=== PATIENT | male | born 1980 | race Caucasian/White ===

== ENCOUNTER 2017-01-11 09:40 | Emergency (ER) | payer MEDICARE, OTHER ==
--- NOTE | 2017-01-11 09:59 | ER Document Report ---
ED Medical Screen (RME) - General Chief Complaint: Palpitations Stated Complaint: POSSIBLE HEART PALPITATIONS Time Seen by Provider: 01/11/17 09:53 Mode of Arrival: Ambulatory Information source: Patient Notes: 36 yr old male who ran out of his home meds presents whit complaints of cramping chest pain , stress and stuttering episodes. pt denies any fevers or chills, notes palpitations I have greeted and performed a rapid initial assessment of this patient. A comprehensive ED assessment and evaluation of the patient, analysis of test results and completion of the medical decision making process will be conducted by additional ED providers. PHYSICAL EXAMINATION: GENERAL: Well-appearing, well-nourished and in no acute distress. HEAD: Atraumatic, normocephalic. EYES: Pupils equal round extraocular movements intact, conjunctiva are normal. ENT: Nares patent NECK: Normal range of motion LUNGS: No respiratory distress Musculoskeletal: Normal range of motion NEUROLOGICAL: Normal speech, normal gait. PSYCH: Normal mood, normal affect. SKIN: Warm, Dry, normal turgor, no rashes or lesions noted. TRAVEL OUTSIDE OF THE [place] IN LAST 30 DAYS: No - Related Data Allergies/Adverse Reactions: No Known Allergies Allergy (Verified 01/11/17 09:45) Past Medical History Renal/ Medical History: Denies: Hx Peritoneal Dialysis Psychiatric Medical History: Reports: Hx Depression, Hx Post Traumatic Stress Disorder Traumatic Medical History: Reports: Hx Traumatic Brain Injury Past Surgical History: Reports: Hx Orthopedic Surgery - bilat shoulders; bilat knees; L3-S1 fusion 2007 - Immunizations Hx Diphtheria, Pertussis, Tetanus Vaccination: Yes Physical Exam - Vital signs Vitals: Temp Pulse Resp BP Pulse Ox 98.2 F 72 20 126/83 H 99 01/11/17 09:47 01/11/17 09:47 01/11/17 09:47 01/11/17 09:47 01/11/17 09:47 Course - Vital Signs Vital signs: Temp Pulse Resp BP Pulse Ox 98.2 F 72 20 126/83 H 99 01/11/17 09:47 01/11/17 09:47 01/11/17 09:47 01/11/17 09:47 01/11/17 09:47
[2017-01-11] MEDS ORDERED: ASPIRIN 81 MG TABLET, CHEWABLE PO ONE (11:32)
--- NOTE | 2017-01-11 11:34 | ER Document Report ---
ED General - General Chief Complaint: Palpitations Stated Complaint: POSSIBLE HEART PALPITATIONS Time Seen by Provider: 01/11/17 09:53 Mode of Arrival: Ambulatory Information source: Patient Notes: Patient presents to the ED with c/o chest cramping that comes and goes for the past two weeks. He reports he has a history of anxiety, panic attacks, TBI, PTSD and is almost out of his Prozac and klonipin. Reports he has been spreading them out, not taking as prescribed. Patient reports he has been under stressful situation in [place] for the past 2 weeks. He just drove back from [place]. Denies SOB. He reports he has had a left-sided cramping chest pain that comes and goes. Reports that the cramp can last for seconds to hours. He reports after the episode he feels exhausted. He denies other symptoms such as fever vomiting diarrhea. Reports mother had a heart attack when she was 20 years old. He denies cardiac disease. Denies high blood pressure. TRAVEL OUTSIDE OF THE [place] IN LAST 30 DAYS: No - HPI Onset: Other - 2 weeks Onset/Duration: Waxing and waning Quality of pain: Cramping Severity: Mild Pain Level: 2 Associated symptoms: None Exacerbated by: Denies Relieved by: Denies Similar symptoms previously: Yes Recently seen / treated by doctor: No - Related Data Allergies/Adverse Reactions: No Known Allergies Allergy (Verified 01/11/17 09:45) Past Medical History - General Information source: Patient - Social History Smoking Status: Current Every Day Smoker Cigarette use (# per day): Yes Chew tobacco use (# tins/day): No Frequency of alcohol use: None Drug Abuse: Marijuana Lives with: Family Family History: Reviewed & Not Pertinent Patient has suicidal ideation: No Patient has homicidal ideation: No Renal/ Medical History: Denies: Hx Peritoneal Dialysis Psychiatric Medical History: Reports: Hx Anxiety - PANIC ATTACKS., Hx Depression , Hx Post Traumatic Stress Disorder, Other - TBI Traumatic Medical History: Reports: Hx Traumatic Brain Injury Past Surgical History: Reports: Hx Orthopedic Surgery - bilat shoulders; bilat knees; L3-S1 fusion 2007 - Immunizations Hx Diphtheria, Pertussis, Tetanus Vaccination: Yes Physical Exam - Vital signs Vitals: Temp Pulse Resp BP Pulse Ox 98.2 F 72 20 126/83 H 99 01/11/17 09:47 01/11/17 09:47 01/11/17 09:47 01/11/17 09:47 01/11/17 09:47 - Notes Notes: PHYSICAL EXAMINATION: GENERAL: Well-appearing and in no acute distress HEAD: Atraumatic, normocephalic. EYES: Pupils equal round extraocular movements intact, sclera anicteric, conjunctiva are normal. ENT: nares patent, Moist mucous membranes. NECK: Normal range of motion, supple without lymphadenopathy LUNGS: CTAB and equal. No wheezes rales or rhonchi. nontender to touch HEART: Regular rate and rhythm without murmurs ABDOMEN: Soft, no tenderness. No guarding, no rebound BACK: Denies pain EXTREMITIES: Normal range of motion, no pitting edema. No cyanosis. NEUROLOGICAL: Cranial nerves grossly intact. Normal sensory/motor exams. PSYCH: Normal mood, normal affect. SKIN: Warm, Dry, normal turgor, no rashes or lesions noted Course - Re-evaluation Re-evalutation: 01/11/17 12:30 Presentation of left side chest pain in an otherwise well-appearing patient. Low clinical suspicion for ACS given the clinical history, exam, EKG without ST elevation or depressions, and negative initial troponin. Heart score less than or equal to 3. PE also seems unlikely given the clinical history, absence of tachycardia or dyspnea. Patient's PERC criteria is negative. Chest x-ray without evidence of pneumothorax or pneumonia. No widened mediastinum. Inferior dissection also seems unlikely given history, symmetric pulses, chest x -ray and vitals. Given the reassuring evaluation, will plan for discharge home at this time with return precautions and follow-up recommendations. Patient has been instructed to return if symptoms worsen or change in any way. HEART score-1 History ECG- SR Age= 36= 0 Risk Factors= smokes, mother family hx CAD= 1 Troponin=0 Total Chest pain in a patient without evidence of cardiac or other serious etiology during the workup today. I discussed with patient that based on age, risk factors and emergency department testing, the likelihood that her symptoms are related to her heart is very low (estimated risk of heart attack or over the next 30 days of less than 1% ). The patient demonstrates decision-making capacity and has verbalized an understanding of these risks to me. Based on this, the patient was instructed to follow-up up as an outpatient. Usual chest pain return precautions reviewed. Patient verbalized understanding. After discussion with patient and his left-sided chest pain is probably due to his lack of anxiety medications. We will discharge him with a prescription for Prozac and Klonopin until [facility]. Patient is calm resting quietly no distress. - Vital Signs Vital signs: Temp Pulse Resp BP Pulse Ox 98.2 F 72 12 115/82 95 01/11/17 09:47 01/11/17 09:47 01/11/17 13:22 01/11/17 11:36 01/11/17 13:22 - Laboratory Result Diagrams: 01/11/17 11:25 01/11/17 11:25 Laboratory results interpreted by me: 01/11/17 01/11/17 01/11/17 11:25 11:25 11:25 BUN 21 H Creatine Kinase 47 L TSH 0.33 L - Diagnostic Test Radiology reviewed: Image reviewed, Reports reviewed - negative - EKG Interpretation by Me EKG shows normal: Sinus rhythm Discharge - Discharge Clinical Impression: Chest pain, Elevated blood pressure reading Condition: Stable Disposition: HOME, SELF-CARE Instructions: Prozac (OM), Anxiety (OM), Benzodiazepines (OM), Chest Pain of Unclear Cause (OM) Additional Instructions: *You have been evaluated for chest pain, history of anxiety *Take medication as prescribed *[facility] *Return to ED for worsening condition, changes, needs *Return to ED if not better in 24 hours Prescriptions: Clonazepam [Klonopin 1 mg Tablet] 1 mg PO BID #20 tablet Fluoxetine HCl [Prozac 20 mg Capsule] 20 mg PO DAILY #30 capsule Forms: Smoking Cessation Education, Elevated Blood Pressure
[2017-01-11 11:52] LABS: ABSOLUTE BASOPHILS # (AUTO) 0.1 10^3/uL (0.0-0.2); ABSOLUTE EOSINOPHILS # (AUTO) 0.4 10^3/uL (0.0-0.6); ABSOLUTE LYMPHOCYTES (AUTO) 2.9 10^3/uL (0.5-4.7); ABSOLUTE MONOCYTES (AUTO) 0.5 10^3/uL (0.1-1.4); ABSOLUTE NEUT (AUTO) 3.3 10^3/uL (1.7-8.2); BASOPHILS % (AUTO) 0.8 % (0-2); EOSINOPHILS % (AUTO) 5.4 % (0-6); HEMATOCRIT 42.2 % (37.9-51.0); HEMOGLOBIN 14.7 g/dL (13.5-17.0); HGB HCT DIFFERENCE 1.9; LYMPHOCYTES % (AUTO) 40.6 % (13-45); MEAN CORPUSCULAR HEMOGLOBIN 32.8 pg (27.0-33.4); MEAN CORPUSCULAR HGB CONC 34.9 g/dL (32.0-36.0); MEAN CORPUSCULAR VOLUME 94 fl (80-97); MONOCYTES % (AUTO) 6.6 % (3-13); RED BLOOD COUNT 4.49 10^6/uL (4.35-5.55); RED CELL DISTRIBUTION WIDTH 12.5 % (11.5-14.0); SEGMENTED NEUTROPHILS % (AUTO) 46.6 % (42-78); WHITE BLOOD COUNT 7.1 10^3/uL (4.0-10.5)
--- NOTE | 2017-01-11 12:09 | RADIOLOGY REPORT (SQ) ---
EXAM DESCRIPTION: CHEST PA/LAT COMPLETED DATE/TIME: 01/11/2017 11:45 am REASON FOR STUDY: chest pain COMPARISON: 06/06/2016 EXAM PARAMETERS: NUMBER OF VIEWS: two views TECHNIQUE: Digital Frontal and Lateral radiographic views of the chest acquired. RADIATION DOSE: NA LIMITATIONS: none FINDINGS: LUNGS AND PLEURA: No opacities, masses or pneumothorax. No pleural effusion. MEDIASTINUM AND HILAR STRUCTURES: No masses or contour abnormalities. HEART AND VASCULAR STRUCTURES: Heart normal size. No evidence for failure. BONES: No acute findings. HARDWARE: None in the chest. OTHER: No other significant finding. IMPRESSION: NO SIGNIFICANT RADIOGRAPHIC FINDING IN THE CHEST. TECHNICAL DOCUMENTATION: JOB ID: [id number] [employer]- All Rights Reserved
[2017-01-11 12:17] LABS: ALANINE AMINOTRANSFERASE 42 U/L (21-72); ALBUMIN 4.3 g/dL (3.5-5.0); ALKALINE PHOSPHATASE 79 U/L (38-126); ANION GAP 11 (5-19); ASPARTATE AMINO TRANSFERASE 23 U/L (17-59); BILIRUBIN,DIRECT 0.3 mg/dL (0.0-0.4); BILIRUBIN,TOTAL 0.5 mg/dL (0.2-1.3); BLOOD UREA NITROGEN 21 mg/dL (7-20); CALCIUM 9.6 mg/dL (8.4-10.2); CARBON DIOXIDE 26 mmol/L (22-30); CHLORIDE 106 mmol/L (98-107); CREATININE RESULT 0.86 mg/dL (0.52-1.25); GLUCOSE 87 mg/dL (75-110); SODIUM 142.5 mmol/L (137-145); TOTAL PROTEIN 6.8 g/dL (6.3-8.2)
[2017-01-11 13:20] LABS: CREATINE KINASE MB 0.51 ng/mL (<4.55)
[2017-01-11 13:23] LABS: TROPONIN I < 0.012 ng/mL
[2017-01-11 13:58] VITALS: BP 104/77
--- NOTE | 2017-01-12 11:05 | EKG REPORT ---
SEVERITY:- NORMAL ECG - SINUS RHYTHM : Confirmed by: Umu Chin MD 12-Jan-2017 11:04:07
== END 2017-01-11 13:55 | disposition home or self-care (01) ==
LOC: ER 09:40
DX: R07.9 Chest pain, unspecified (principal); R03.0 Elevated blood-pressure reading, without diagnosis of hypertension; R00.2 Palpitations; F17.210 Nicotine dependence, cigarettes, uncomplicated; F41.9 Anxiety disorder, unspecified; Z87.820 Personal history of traumatic brain injury; Z98.1 Arthrodesis status
CPT/HCPCS: 36415; 71020; 80053; 82550; 82553; 84443; 84484; 85025; 93005; 93010; 99285